=== PATIENT | male | born 1975 | race Asian ===

== ENCOUNTER 2023-12-21 12:50 | Emergency (ER) | payer OTHER ==
[2023-12-21 13:40] VITALS: BP 101/76; PULSE 77; RESP 20; TEMP 97.5
[2023-12-21 14:36] VITALS: BMI 29.5
[2023-12-21] MEDS ORDERED: RABIES VACCINE (PCEC)/PF 2.5 UNIT/VIAL IM ONE (14:53)
[2023-12-21] MEDS ORDERED: RABIES IMMUNE GLOBULIN/PF 300 UNIT/ML (5 ML) VIAL IM ONE (14:54)
[2023-12-21] MEDS: RABIES VACCINE (PCEC)/PF 2.5 UNIT/VIAL IM ONE (15:06)
[2023-12-21] MEDS: RABIES IMMUNE GLOBULIN 300 UNITS/1 ML VIAL IM ONE (15:09)
== END 2023-12-21 15:46 | disposition home or self-care (01) ==
LOC: FER 12:50
PROC: 3E0234Z Introduction of Serum, Toxoid and Vaccine into Muscle, Percutaneous Approach (ICD-10-PCS; principal; 2023-12-21)
DX: Z20.3 Contact with and (suspected) exposure to rabies (principal)
CPT/HCPCS: 90375; 90675; 99284-25

== ENCOUNTER 2023-12-24 15:24 | Emergency (ER) | payer OTHER ==
[2023-12-24] MEDS ORDERED: RABIES VACCINE (PCEC)/PF 2.5 UNIT/VIAL IM ONE (15:32)
[2023-12-24 15:40] VITALS: BP 131/92; PULSE 85; RESP 18; TEMP 97.5; BMI 29.5
[2023-12-24] MEDS: RABIES VACCINE (PCEC)/PF 2.5 UNIT/VIAL IM ONE (15:42)
== END 2023-12-24 15:51 | disposition home or self-care (01) ==
LOC: FER 15:24
PROC: 3E0234Z Introduction of Serum, Toxoid and Vaccine into Muscle, Percutaneous Approach (ICD-10-PCS; principal; 2023-12-24)
DX: Z29.14 Encounter for prophylactic rabies immune globulin (principal)
CPT/HCPCS: 90675; 99281-25

== ENCOUNTER 2023-12-28 12:03 | Emergency (ER) | payer OTHER ==
[2023-12-28 12:08] VITALS: BP 121/86; PULSE 89; RESP 18; TEMP 98.1; BMI 29.5
[2023-12-28] MEDS ORDERED: RABIES VACCINE (PCEC)/PF 2.5 UNIT/VIAL IM ONE (12:09)
[2023-12-28] MEDS: RABIES VACCINE (PCEC)/PF 2.5 UNIT/VIAL IM ONE (12:19)
== END 2023-12-28 12:22 | disposition home or self-care (01) ==
LOC: FER 12:03
DX: Z29.14 Encounter for prophylactic rabies immune globulin (principal)
CPT/HCPCS: 90675; 99282-25

== ENCOUNTER 2024-01-04 08:16 | Emergency (ER) | payer OTHER ==
[2024-01-04 08:21] VITALS: BP 113/78; PULSE 86; RESP 16; TEMP 98.4; BMI 29.5
[2024-01-04] MEDS ORDERED: RABIES VACCINE (PCEC)/PF 2.5 UNIT/VIAL IM ONE (08:22)
[2024-01-04] MEDS: RABIES VACCINE (PCEC)/PF 2.5 UNIT/VIAL IM ONE (08:30)
== END 2024-01-04 08:33 | disposition home or self-care (01) ==
LOC: FER 08:16
PROC: 3E0234Z Introduction of Serum, Toxoid and Vaccine into Muscle, Percutaneous Approach (ICD-10-PCS; principal; 2024-01-04)
DX: Z29.14 Encounter for prophylactic rabies immune globulin (principal)
CPT/HCPCS: 90675; 99281-25